=== PATIENT | female | born 1990 | race Caucasian/White ===

== ENCOUNTER 2018-07-07 10:23 | Emergency (ER) | payer BC, OTHER ==
[2018-07-07] MEDS ORDERED: Lidocaine 2% PF * 5 ML VIAL INJ ONE (12:32)
--- NOTE | 2018-07-07 12:47 | UC ---
Laceration HPI - HPI Summary HPI Summary: patient cut her left thumb on a ceramic bowl at 10 am today. - History Of Current Complaint Chief Complaint: UCLaceration Stated Complaint: LEFT HAND LACERATION Time Seen by Provider: 07/07/18 12:21 Hx Obtained From: Patient Hx Last Menstrual Period: 06/21/18 Laceration Location: Finger Mechanism Of Injury: Sharp Trauma Onset/Duration: Sudden Onset, Lasting Hours Severity: Moderate Pain Intensity: 5 - Allergies/Home Medications Allergies/Adverse Reactions: Allergies Allergy/AdvReac Type Severity Reaction Status Date / Time No Known Allergies Allergy Verified 07/07/18 11:28 Home Medications: Home Medications Vitamin B Complex TAB* [B Complex-50*] 1 tab PO DAILY 07/07/18 [History Confirmed 07/07/18] PMH/Surg Hx/FS Hx/Imm Hx Previously Healthy: Yes - Surgical History Surgical History: None - Family History Known Family History: Negative: Cardiac Disease, Hypertension - Social History Alcohol Use: Occasionally Substance Use Type: None Smoking Status (MU): Never Smoked Tobacco - Immunization History Most Recent Tetanus Shot: not sure Review of Systems All Other Systems Reviewed And Are Negative: Yes Constitutional: Positive: Negative Skin: Positive: Other - l shaped laceration ENT: Positive: Negative Respiratory: Positive: Negative Cardiovascular: Positive: Negative Gastrointestinal: Positive: Negative Genitourinary: Positive: Negative Motor: Positive: Negative Neurovascular: Positive: Negative Musculoskeletal: Positive: Arthralgia, Myalgia - pain around laceration Neurological: Positive: Negative Psychological: Positive: Negative Is Patient Immunocompromised?: No Physical Exam Triage Information Reviewed: Yes Appearance: Well-Appearing, Well-Nourished, Pain Distress Vital Signs: Initial Vital Signs Temp 99.3 F 07/07/18 11:29 Pulse 63 07/07/18 11:29 Resp 15 07/07/18 11:29 BP 106/66 07/07/18 11:29 Pulse Ox 99 07/07/18 11:29 Vital Signs Reviewed: Yes Eye Exam: Normal ENT Exam: Normal Dental Exam: Normal Neck exam: Normal Respiratory Exam: Normal Cardiovascular Exam: Normal Abdominal Exam: Normal Bowel Sounds: Positive: Present Musculoskeletal Exam: Normal Neurological Exam: Normal Psychological Exam: Normal Skin: Positive: Other - 4 cm laceration L shaped on the left thenar eminence Laceration Repair - Laceration Repair 1 Description: Irregular : No Repair Necessary Laceration Size After Repair: Length (cm) - 4 Modified For Repair: No Type Injection: Digital Anesthesia Used: 2.0% Lido Cleansing Completed Via Routine Prep: Yes Irrigation With Pressure Irrigation Device: Yes Closure Material: Sutures - 7 Closure Method: Single Layer Suture Of: Skin Laceration Course/Dx - Course/Dx Course Of Treatment: hx obtained, exam performed ,meds reviewed,laceration cleansed by nurse, sutures placed and wound dressed. advised to return in 10 days for removal - Differential Dx - Laceration/Wound Differental Diagnoses: Laceration - Diagnosis Provider Diagnosis: Laceration of thumb Discharge - Sign-Out/Discharge Documenting (check all that apply): Patient Departure All imaging exams completed and their final reports reviewed: No Studies - Discharge Plan Condition: Stable Disposition: HOME Patient Education Materials: Care For Your Stitches (DC), Laceration (DC) Referrals: Izaiah Garay MD [Primary Care Provider] - Additional Instructions: 1. keep it clean and dry 2. use the splint to limit thumb movement 3. return in 10 days for removal of stitiches. 4. ibuprofen for pain. 5. if you develop, redness, increased pain, swelling or drainage follow up to rule out infection. 6. You received an updated tetanus shot today. - Billing Disposition and Condition Condition: STABLE Disposition: Home - Attestation Statements Provider Attestation: Per institutional requirements, I have reviewed the chart, however, I was not consulted specifically or made aware of this patient by the midlevel provider. I did not personally evaluate, interact with , or disposition this patient.
[2018-07-07] MEDS ORDERED: Tetan/Diph/Pertus SYR(Tdap)* 0.5 ML SYR(BOOSTRIX) use SYR IM ONE (13:26)
[2018-07-07 13:38] VITALS: BP 104/65
== END 2018-07-07 13:45 | disposition home or self-care (01) ==
LOC: UCCORT 10:23
DX: S61.012A Laceration without foreign body of left thumb without damage to nail, initial encounter (principal); W26.8XXA Contact with other sharp object(s), not elsewhere classified, initial encounter; Y92.9 Unspecified place or not applicable; Z23 Encounter for immunization
CPT/HCPCS: 12002; 90471; 90715; 99211; 99212; G0463

== ENCOUNTER 2018-07-17 15:40 | Emergency (ER) | payer BC ==
[2018-07-17 16:30] VITALS: BP 114/54
--- NOTE | 2018-07-17 16:39 | UC ---
UC General HPI - HPI Summary HPI Summary: sutures placed L hand 7 days ago. here for removal. no complaints. - History of Current Complaint Chief Complaint: UCLaceration Stated Complaint: STITCH REMOVAL Time Seen by Provider: 07/17/18 16:33 Hx Obtained From: Patient Hx Last Menstrual Period: 06/21/18 Pain Intensity: 0 Associated Signs & Symptoms: Negative: Edema, Fever - Allergy/Home Medications Allergies/Adverse Reactions: Allergies Allergy/AdvReac Type Severity Reaction Status Date / Time No Known Allergies Allergy Verified 07/17/18 16:31 PMH/Surg Hx/FS Hx/Imm Hx Previously Healthy: Yes - Surgical History Surgical History: None - Family History Known Family History: Positive: Non-Contributory Negative: Cardiac Disease, Hypertension - Social History Alcohol Use: Occasionally Substance Use Type: None Smoking Status (MU): Never Smoked Tobacco - Immunization History Most Recent Tetanus Shot: not sure Review of Systems All Other Systems Reviewed And Are Negative: Yes Constitutional: Positive: Negative Skin: Positive: Negative Eyes: Positive: Negative ENT: Positive: Negative Respiratory: Positive: Negative Cardiovascular: Positive: Negative Gastrointestinal: Positive: Negative Genitourinary: Positive: Negative Motor: Positive: Negative Neurovascular: Positive: Negative Musculoskeletal: Positive: Negative Neurological: Positive: Negative Psychological: Positive: Negative Physical Exam Triage Information Reviewed: Yes Appearance: Well-Appearing Vital Signs: Initial Vital Signs Temp 98.3 F 07/17/18 16:28 Pulse 87 07/17/18 16:28 Resp 16 07/17/18 16:28 BP 114/54 07/17/18 16:28 Pulse Ox 100 07/17/18 16:28 Vital Signs Reviewed: Yes Eyes: Positive: Conjunctiva Clear ENT: Positive: Normal ENT inspection Neck: Positive: Supple Respiratory: Positive: No respiratory distress Cardiovascular: Positive: Brisk Capillary Refill Musculoskeletal: Positive: ROM Intact Neurological: Positive: Alert Psychological: Positive: Age Appropriate Behavior Skin Exam: Normal, Other - stitches L hand. No red or swelling and hand has full s/v/m function. Course/Dx - Course Course Of Treatment: sutures removed by this provider. pt tolerated well. - Diagnoses Provider Diagnosis: Encounter for removal of sutures Discharge - Sign-Out/Discharge Documenting (check all that apply): Patient Departure All imaging exams completed and their final reports reviewed: No Studies - Discharge Plan Condition: Stable Disposition: HOME Patient Education Materials: Stitches Removal (ED) Referrals: Izaiah Garay MD [Primary Care Provider] - If Needed - Billing Disposition and Condition Condition: STABLE Disposition: Home
== END 2018-07-17 16:44 | disposition home or self-care (01) ==
LOC: UCCORT 15:40
DX: S61.412D Laceration without foreign body of left hand, subsequent encounter (principal); X58.XXXD Exposure to other specified factors, subsequent encounter

== ENCOUNTER 2021-08-05 11:27 | Inpatient (IN) ==
[2021-08-05] MEDS ORDERED: Buffered Lidocaine 1% SYRIN 1 ml INTRADERM ONE (14:32)
[2021-08-05] MEDS ORDERED: Lactated Ringers 1000 ml BAG 1,000 ML IV ONE ×2 (14:32→16:45)
[2021-08-05 15:26] LABS: Urine Benzodiazepine Screen None Detected (None Detect); Urine Cannabinoids Screen None Detected (None Detect); Urine Opiates Screen None Detected (None Detect)
[2021-08-05 15:50] LABS: ABS Lymphocytes 0.7 10^3/ul (1.0-4.8); ABS Monocytes 0.5 10^3/ul (0-0.8); ABS Neutrophils 15.1 10^3/ul (1.5-7.7); Eosinophil % 0.1 %; Hematocrit 38 % (35-47); Hemoglobin 12.8 g/dL (12.0-16.0); Lymphocyte % 4.5 %; Mean Corpuscular HGB Conc 34 g/dL (31-36); Mean Corpuscular Hemoglobin 31 pg (27-31); Mean Corpuscular Volume 90 fL (80-97); Mean Platelet Volume 8.6 fL (7.4-10.4); Platelet Count 166 10^3/uL (150-450); Red Cell Distribution Width 14 % (10-15); White Blood Count 16.4 10^3/uL (3.5-10.8)
[2021-08-05] MEDS: Lactated Ringers 1000 ml BAG 1,000 ML IV SCH ×2 (16:01→17:12)
[2021-08-05] MEDS ORDERED: OBEPIDURAL 250 ML EPIDURAL ONE (16:05)
[2021-08-05] MEDS ORDERED: Sodium Citrate/Citric Acid LIQ 15 ML UDC PO PRN (16:45)
[2021-08-05] MEDS ORDERED: Lactated Ringers 1000 ml BAG 500 ML IV PRN ×2 (16:45)
[2021-08-05] MEDS ORDERED: Phenylephrine 40 mcg/mL 10mL (400mcg) SYRINGE IV PUSH PRN ×2 (16:45)
[2021-08-05] MEDS ORDERED: Lactated Ringers 1000 ml BAG 1,000 ML IV SCH ×3 (17:00→21:00)
[2021-08-05] MEDS ORDERED: OBEPIDURAL 250 ML EPIDURAL SCH (17:00)
[2021-08-05 17:41] LABS: Urine Appearance Clear; Urine Bilirubin Negative (Negative); Urine Blood Negative (Negative); Urine Color Yellow; Urine Glucose Negative (Negative); Urine Ketones 2+ (Negative); Urine Nitrite Negative (Negative); Urine Protein 1+(30 mg/dL) (Negative); Urine Specific Gravity 1.023 (1.002-1.030); Urine Urobilinogen Negative (Negative)
[2021-08-05 17:56] LABS: Urine Bacteria Absent (Absent); Urine Red Blood Cell Trace(0-2/hpf) (Absent); Urine White Blood Cell Trace(0-5/hpf) (Absent)
[2021-08-05] MEDS ORDERED: Oxytocin in LR 20 UNITS/1,000 ML BAG IVPB ONE (19:02)
[2021-08-05] MEDS ORDERED: Witch Hazel PAD JAR TOPICAL PRN (20:18)
[2021-08-05] MEDS ORDERED: Dibucaine 1% OINT 28.35 GM TUBE PR PRN (20:18)
[2021-08-05] MEDS ORDERED: Oxytocin in LR 20 UNITS/1,000 ML BAG IVPB SCH (21:00)
[2021-08-05] MEDS ORDERED: Lidocaine 1% VIAL 10 MG/ML VIAL ONE (22:17)
[2021-08-06 06:16] LABS: ABS Lymphocytes 1.5 10^3/ul (1.0-4.8); ABS Neutrophils 11.2 10^3/ul (1.5-7.7); Eosinophil % 0.3 %; Hematocrit 34 % (35-47); Hemoglobin 11.3 g/dL (12.0-16.0); Lymphocyte % 11.1 %; Mean Corpuscular HGB Conc 33 g/dL (31-36); Mean Corpuscular Hemoglobin 30 pg (27-31); Mean Corpuscular Volume 91 fL (80-97); Mean Platelet Volume 8.3 fL (7.4-10.4); Platelet Count 162 10^3/uL (150-450); Red Blood Count 3.75 10^6 /uL (3.70-4.87); Red Cell Distribution Width 14 % (10-15); White Blood Count 13.8 10^3/uL (3.5-10.8)
[2021-08-07 08:39] VITALS: BP 111/67
== END 2021-08-07 13:08 | disposition home or self-care (01) | DRG 560 ==
LOC: MCHOBOUT 11:27 → MCHOB 14:36
PROVIDERS: ADMIT Midwife; ATTEND Advanced Practice Midwife

== ENCOUNTER 2024-06-09 18:56 | Inpatient (IN) ==
[2024-06-09] MEDS: Lactated Ringers 1000 ml BAG 1,000 ML IV ONE (22:33)
[2024-06-09] MEDS: Buffered Lidocaine 1% SYRIN 1 ml INTRADERM ONE (22:48)
[2024-06-09 23:06] LABS: ABS Eosinophils 0.1 10^3/uL (0.0-0.5); ABS Lymphocytes 1.6 10^3/uL (1.0-4.8); ABS Monocytes 0.7 10^3/uL (0.0-0.9); ABS Neutrophils 9.8 10^3/uL (1.5-7.6); Eosinophil % 0.4 %; Hematocrit 37.6 % (35-45); Hemoglobin 12.5 g/dL (11.5-14.3); Lymphocyte % 13.5 %; Mean Corpuscular Hemoglobin 29.3 pg (27-33); Mean Corpuscular Hgb Conc 33.3 g/dL (31-36); Mean Corpuscular Volume 88.1 fL (80-97); Mean Platelet Volume 9.1 fL (7.5-11.2); Platelet Count 182 10^3/uL (150-450); Red Blood Count 4.26 10^6/uL (3.63-4.92); Red Cell Distribution Width 15.7 % (12-17); White Blood Count 12.2 10^3/uL (3.8-11.8)
[2024-06-09] MEDS: Oxytocin in LR 20,000 MILLI.UNIT/1,000 ML BAG IV SCH ×2 (23:13→23:25)
[2024-06-09] MEDS: Phenylephrine 40 mcg/mL 10mL (400mcg) SYRINGE ONE (23:25)
[2024-06-09] MEDS: OBEPIDURAL (200 ML) 0 ML EPIDURAL ONE (23:25)
[2024-06-09] MEDS: Lactated Ringers 1000 ml BAG 1,000 ML IV SCH (23:25)
[2024-06-09] MEDS: Lidocaine 1.5% EPI 1:200,000 30 ML SDV ONE (23:27)
[2024-06-09] MEDS: Lidocaine 1% VIAL 10 MG/ML 30 ML VIAL INJ PRN (23:27)
[2024-06-09] MEDS ORDERED: Glycerin ADULT 2.4 gm SUPP PR PRN (23:41)
[2024-06-09] MEDS ORDERED: Lactated Ringers 1000 ml BAG 1,000 ML IV SCH (23:45)
[2024-06-10] MEDS: Witch Hazel PAD JAR TOPICAL PRN (00:29)
[2024-06-10] MEDS: Dibucaine 1% OINT 28.35 GM TUBE PR PRN (00:29)
[2024-06-10 09:10] LABS: ABS Lymphocytes 1.6 10^3/uL (1.0-4.8); ABS Monocytes 0.6 10^3/uL (0.0-0.9); ABS Neutrophils 11.5 10^3/uL (1.5-7.6); Eosinophil % 0.3 %; Hematocrit 33.2 % (35-45); Hemoglobin 10.9 g/dL (11.5-14.3); Lymphocyte % 11.8 %; Mean Corpuscular Hemoglobin 28.8 pg (27-33); Mean Corpuscular Volume 87.2 fL (80-97); Mean Platelet Volume 9.1 fL (7.5-11.2); Platelet Count 191 10^3/uL (150-450); Red Blood Count 3.81 10^6/uL (3.63-4.92); Red Cell Distribution Width 15.9 % (12-17); White Blood Count 13.9 10^3/uL (3.8-11.8)
[2024-06-11 08:52] VITALS: BP 124/55
== END 2024-06-11 11:33 | disposition home or self-care (01) | DRG 560 ==
LOC: MCHOBOUT 18:56 → MCHOB 22:28
PROVIDERS: ADMIT Advanced Practice Midwife; ATTEND Advanced Practice Midwife